=== PATIENT | female | born 1970 | race African-American/Black ===

== ENCOUNTER 2017-08-06 04:12 | Emergency (ER) | payer OTHER ==
[2017-08-06] MEDS ORDERED: predniSONE 20 MG TABLET PO STA (05:25)
--- NOTE | 2017-08-06 05:37 | ED Physician Documentation ---
PD HPI FOCAL NEURO - Stated complaint Stated Complaint: FACIAL PX - Chief complaint Chief Complaint: Heent - History obtained from History obtained from: Patient, Family - History of Present Illness Timing - onset: Yesterday Timing - details: Gradual onset, Still present Weakness: Face, Left Associated symptoms: No: Headache, Nausea / vomiting, Seizure Similar symptoms before: Has not had sx before Recently seen: Not recently seen - Additional information Additional information: Patient is a 46 year old female with no significant past medical history who is presenting to the emergency department for facial swelling. patient states that she ate some clams yesterday and that she had some face pain and swelling. patient states that she also had some new face lotion. Upon initial evaluation of the patient she had a left sided facial droop. patient states that the symptoms started almost 12 hours ago. Review of Systems Constitutional: denies: Fever, Chills Eyes: denies: Decreased vision, Photophobia Ears: denies: Ear pain, Drainage/discharge Nose: denies: Congestion Throat: reports: Sore throat. denies: Oral lesions / sores Cardiac: denies: Chest pain / pressure, Palpitations Respiratory: denies: Dyspnea, Cough, Wheezing GI: denies: Nausea, Vomiting : reports: Reviewed and negative Skin: denies: Rash, Lesions Neurologic: reports: Focal weakness. denies: Numbness, Altered mental status, Headache, Head injury, LOC Immunocompromised: denies: Immunocompromised PD PAST MEDICAL HISTORY - Past Medical History Past Medical History: Yes Cardiovascular: Hypertension - Past Surgical History Past Surgical History: No - Present Medications Home Medications: Ambulatory Orders Medication Instructions Recorded Confirmed predniSONE [Prednisone] 60 mg PO DAILY 7 Days tablet 08/06/17 - Allergies Allergies/Adverse Reactions: Allergies Allergy/AdvReac Type Severity Reaction Status Date / Time No Known Drug Allergies Allergy Verified 08/06/17 04:18 - Social History Does the pt smoke?: No Smoking Status: Never smoker Does the pt drink ETOH?: No Does the pt have substance abuse?: No - Immunizations Immunizations are current?: Yes - POLST Patient has POLST: No PD ED PE NORMAL - Vitals Vital signs reviewed: Yes - General General: Alert and oriented X 3, No acute distress - HEENT HEENT: Atraumatic, PERRL - Neck Neck: Supple, no meningeal sign, No JVD - Cardiac Cardiac: RRR, No murmur - Respiratory Respiratory: No respiratory distress - Abdomen Abdomen: Soft, Non tender, Non distended - Derm Derm: Normal color, Warm and dry, No rash - Extremities Extremities: No deformity, No tenderness to palpate, Normal ROM s pain, No calf tenderness / cord - Neuro Neuro: Alert and oriented X 3 Eye Opening: Spontaneous Motor: Obeys Commands Verbal: Oriented GCS Score: 15 PD ED PE EXPANDED - Neuro Neuro: Alert and Oriented X 3, Normal Speech, Left face (left sided facial droop involving forehead as well, consistent with bells pasly) NIHSS - Level of Consciousness LOC Questions: (0) Answers both Q's correct - Gaze Best Gaze: (0) Normal - Visual Visual: (0) No loss - Facial Palsy Facial Palsy: (3) Complete paralysis - Motor Arms (both separate) Motor Arm (right): (0) No drift Motor Arm (left): (0) No drift - Motor Legs (both separate) Motor Leg (right): (0) No drift Motor Leg (left): (0) No drift - Limb Ataxia Limb Ataxia: (0) Absent - Sensory Sensory: (0) Normal - Best Language Best Language: (0) No aphasia - Dysarthria Dysarthria: (0) Normal - Extinction and Inattention (formally neg Extinction and inattention: (0) No abnormality Results - Vitals Vitals: Vital Signs - 24 hr 08/06/17 04:19 Temperature 36.7 C Heart Rate 92 Respiratory 18 Rate Blood Pressure 197/115 H O2 Saturation 98 Oxygen O2 Source Room air PD MEDICAL DECISION MAKING - ED course Complexity details: reviewed old records, reviewed results, re-evaluated patient , considered differential, d/w patient, d/w [facility] consultant ED course: Patient was seen and examined at bedside. patient's findings were consistent with villanueva's palsy. Patient was started on prednisone and was stable for discharge with outpatient follow up. Departure - Departure Disposition: 01 Home, Self Care Clinical Impression: Villanueva's palsy Condition: Good Instructions: ED [place] Palsy Follow-Up: Donnie Singh MD [Primary Care Provider] - Within 1 week Prescriptions: predniSONE [Prednisone] 60 mg PO DAILY 7 Days tablet Comments: Your symptoms today are being caused by villanueva's palsy. it is normally self limited and caused by a virus. You were given your first dose of steroids today and will need to be on them for a week. You should call your doctor to schedule a follow up appointment. You may return to the emergency department at any time for new, worsening or uncontrollable symptoms.
[2017-08-06 05:55] VITALS: BP 203/128
== END 2017-08-06 05:55 | disposition home or self-care (01) ==
LOC: ED 04:12
DX: G51.0 Bell's palsy (principal); I10 Essential (primary) hypertension
CPT/HCPCS: 99283; J7512

== ENCOUNTER 2018-03-08 16:06 | Emergency (ER) | payer OTHER ==
[2018-03-08 16:13] VITALS: BP 197/127
[2018-03-08] MEDS ORDERED: TETANUS/DIPHTHERIA/PERTUSSIS 0.5 ML SYRINGE IM ONE (16:27)
--- NOTE | 2018-03-08 16:27 | ED Physician Documentation ---
PD HPI UPPER EXT INJURY - Stated complaint Stated Complaint: R HAND LAC - Chief complaint Chief Complaint: Laceration - History obtained from History obtained from: Patient - History of Present Illness Location: Right (She cut the tip of her right index finger with a mandolin slicer at home while making salad just prior to arrival. Tetanus is about 10 years old.) Review of Systems Constitutional: reports: Reviewed and negative Throat: reports: Reviewed and negative Cardiac: reports: Reviewed and negative PD PAST MEDICAL HISTORY - Past Medical History Past Medical History: Yes Cardiovascular: Hypertension - Past Surgical History Past Surgical History: No - Present Medications Home Medications: Ambulatory Orders Medication Instructions Recorded Confirmed Aspirin Chewable [[facility] [place] 03/08/18 03/08/18 Aspirin] Losartan [Cozaar] 03/08/18 - Allergies Allergies/Adverse Reactions: Allergies Allergy/AdvReac Type Severity Reaction Status Date / Time No Known Drug Allergies Allergy Verified 03/08/18 16:13 - Social History Does the pt smoke?: No Smoking Status: Never smoker Does the pt drink ETOH?: No Does the pt have substance abuse?: No - Immunizations Immunizations are current?: No Immunizations: Other immun current - POLST Patient has POLST: No PD ED PE NORMAL - Vitals Vital signs reviewed: Yes - General General: Alert and oriented X 3, No acute distress - Extremities Extremities: Other (She has a finger tip amputation that involves a small part of the nail, it is only about 5 mm around, much less than 1 cm.) - Neuro Neuro: Alert and oriented X 3, Normal speech Results - Vitals Vitals: Vital Signs - 24 hr 03/08/18 16:09 Temperature 36 C L Heart Rate 85 Respiratory 18 Rate Blood Pressure 197/127 H O2 Saturation 99 Oxygen O2 Source Room air PD MEDICAL DECISION MAKING - ED course ED course: The wound was irrigated and dressed with Xeroform tube gauze and she was counseled on wound care and conservative treatment. - Sepsis Event Vital Signs: Vital Signs - 24 hr 03/08/18 16:09 Temperature 36 C L Heart Rate 85 Respiratory 18 Rate Blood Pressure 197/127 H O2 Saturation 99 Oxygen O2 Source Room air Departure - Departure Disposition: 01 Home, Self Care Clinical Impression: Fingertip amputation Qualifiers: Encounter type: initial encounter Qualified Code(s): S68.129A - Partial traumatic metacarpophalangeal amputation of unspecified finger, initial encounter Condition: Good Record reviewed to determine appropriate education?: Yes Instructions: ED Laceration Amputation Finger Tip Open Tx Comments: Your blood pressure was elevated today on check into the emergency department. This does not mean that you have hypertension, it is a common phenomenon to come to the emergency department and have elevated blood pressure. I recommend that you see your primary care physician within the week to have it rechecked when you are feeling better.
== END 2018-03-08 16:45 | disposition home or self-care (01) ==
LOC: ED 16:06
DX: S68.120A Partial traumatic metacarpophalangeal amputation of right index finger, initial encounter (principal); W27.4XXA Contact with kitchen utensil, initial encounter; Y93.G1 Activity, food preparation and clean up; Y92.009 Unspecified place in unspecified non-institutional (private) residence as the place of occurrence of the external cause
CPT/HCPCS: 90471; 99283